=== PATIENT | male | born 1960 | race Caucasian/White ===

== ENCOUNTER → 2022-03-18 | Day surgery (SDC) | payer MEDICARE, OTHER ==
[~2022-03-18] VITALS: Ht 167.6 cm; Wt 93.9 kg
[~2022-03-18] MED LIST: AMITRIPTYLINE H10 MG PO; AMOXICILLIN875 MG PO; CELEBREX200 MG PO; CRESTOR40 MG PO; DIAZEPAM10 MG PO; FLOMAX0.4 MG PO; FLONASE ALLER15.8 ML; HYDROCODON-ACE1 EAC6 PO; IBUPROFEN800 MG PO; LOVASTATIN40 MG PO; MELOXICAM15 MG PO; METAXALONE800 MG PO; MIRTAZAPINE15 MG PO; NEURONTIN600 MG PO; OMNICEF 300 MG300 MG PO; OXYCODONE-ACET1 EACH PO; PROAIR HFA8.5 GM INH; PROSCAR 5 MG TAB5 MG PO; PROTONIX 40 MG40 M1 PO; RIZATRIPTAN10 MG PO; TOBRAMYCIN5 ML OP; ZOLOFT100 MG PO
[2022-03-18 07:58] LABS: BUN/CREATININE RATIO 13 (0-10)
== END | disposition home or self-care (01) ==
LOC: OR 06:41
PROVIDERS: Orthopaedic Surgery
DX: S62.102A Fracture of unspecified carpal bone, left wrist, initial encounter for closed fracture (principal); W01.0XXA Fall on same level from slipping, tripping and stumbling without subsequent striking against object, initial encounter; Y92.094 Garage of other non-institutional residence as the place of occurrence of the external cause; I10 Essential (primary) hypertension; E78.5 Hyperlipidemia, unspecified; J44.9 Chronic obstructive pulmonary disease, unspecified; K21.9 Gastro-esophageal reflux disease without esophagitis; M19.90 Unspecified osteoarthritis, unspecified site; F31.9 Bipolar disorder, unspecified; F41.9 Anxiety disorder, unspecified; F17.210 Nicotine dependence, cigarettes, uncomplicated; Z79.1 Long term (current) use of non-steroidal anti-inflammatories (NSAID); Z79.82 Long term (current) use of aspirin; Z79.899 Other long term (current) drug therapy
CPT/HCPCS: 36415; 73110; 76000; 80048; C1713; J0690; J1100; J1885; J2001; J2250; J2405; J2704; J2795; J3010